=== PATIENT | female | born 1995 | race Caucasian/White ===

== ENCOUNTER → 2018-06-07 | Outpatient (CLI) | payer OTHER ==
--- NOTE | 2018-06-07 15:26 | EEG ---
DATE OF SERVICE: 06/07/2018 EEG NUMBER: [id number]. OBJECTIVE: The patient is a 23-year-old female with head injury. He was having episodes of altered consciousness, rule out seizures. DESCRIPTION: This is a digital study. Electrodes are placed according to the international 10-20 system. Bipolar and referential montages are available. Activation procedures typically include hyperventilation and intermittent photic stimulation. INTERPRETATION: The waking background consists of 9-10 Hz, 50-100 microvolt activity, symmetrically distributed over parietooccipital regions and reactive to eye opening. Hyperventilation and intermittent photic stimulation are noncontributory. Stage 1 sleep is achieved with normal electroencephalogram patterns. IMPRESSION: This electroencephalogram with the patient awake and asleep is within normal limits. There is no focal, paroxysmal, or epileptiform activity. Thank you for letting us help with the patient's care. JAKE FRANKEL MD DR: RAZA/joanne JOB#: [id number] / [id number]
== END | disposition home or self-care (01) ==
LOC: RT 08:58
PROVIDERS: ATTEND Psychiatry & Neurology Neurology with Special Qualifications in Child Neurology
DX: F07.81 Postconcussional syndrome (principal)
CPT/HCPCS: 95816